=== PATIENT | male | born 1955 | race Caucasian/White ===

== ENCOUNTER 2016-08-09 23:59 | Observation (INO) | payer BC, OTHER ==
[~2016-08-09] VITALS: Ht 182.9 cm; Wt 93.0 kg
[2016-08-10] VITALS (16 sets, daily range): BP systolic 96–146; BP diastolic 57–85; PULSE 54–82; RESP 15–18; TEMP 97.5–98.9; O2SAT 96–100
[2016-08-10] MEDS ORDERED: ASPI81CH CHEW (00:30)
[2016-08-10] MEDS ORDERED: HYPERTENSION MED (00:30)
[2016-08-10] MEDS ORDERED: ATOR20TA15 PO (00:30)
[2016-08-10] MEDS ORDERED: SODIUM CHLORIDE 0.9% FLUSH 10 ML FLUSH IVF PRN (00:45)
--- NOTE | 2016-08-10 00:45 | PD ---
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 PT FELT SUBSTERNAL CHEST PRESSURE, NONRAD , 8/10, ASSOC WITH DIAPHORESIS, ONSET AT REST, LASTED ABOUT 2-3 MIN, AND WAS ABOUT 70MIN SUPERVISOR BRAIDING PFSH Past Medical History Hx Anticoagulant Therapy: Yes (ASA) Cardiovascular Problems: Yes (HTN) High Cholesterol: Yes Diminished Hearing: No Hypertension: Yes Tetanus Vaccination: Unknown Influenza Vaccination: No Past Surgical History Other Surgery: Yes (VASECTOMY) Social History Alcohol Use: Yes (OCCASSIONALLY) Tobacco Use: No Substance Use: No Allergies-Medications (Allergen,Severity, Reaction): Coded Allergies: Penicillin (Verified Allergy, Severe, Rash, 08/10/16) Reported Meds & Prescriptions Reported Meds & Active Scripts Active Reported Aspirin 81 Mg Chew 81 Mg CHEW ONCE Atorvastatin (Atorvastatin Calcium) 20 Mg Tab 20 Mg PO ONCE Review of Systems Except as stated in HPI: all other systems reviewed are Neg Cardiovascular: Positive: Chest Pain or Discomfort Physical Exam Narrative GENERAL: SKIN: Warm and dry. HEAD: Atraumatic. Normocephalic. EYES: Pupils equal and round. No scleral icterus. No injection or drainage. ENT: No nasal bleeding or discharge. Mucous membranes pink and moist. NECK: Trachea midline. No JVD. CARDIOVASCULAR: Regular rate and rhythm. RESPIRATORY: No accessory muscle use. Clear to auscultation. Breath sounds equal bilaterally. GASTROINTESTINAL: Abdomen soft, non-tender, nondistended. Hepatic and splenic margins not palpable. MUSCULOSKELETAL: Extremities without clubbing, cyanosis, or edema. No obvious deformities. NEUROLOGICAL: Awake and alert. No obvious cranial nerve deficits. Motor grossly within normal limits. Five out of 5 muscle strength in the arms and legs. Normal speech. PSYCHIATRIC: Appropriate mood and affect; insight and judgment normal. Data Data Last Documented VS Orders Electrocardiogram (08/10/16 00:33) Ckmb (Isoenzyme) Profile (08/10/16 00:33) Complete Blood Count With Diff (08/10/16 00:33) Comprehensive Metabolic Panel (08/10/16 00:33) D-Dimer (08/10/16 00:33) Prothrombin Time / Inr (Pt) (08/10/16 00:33) Act Partial Throm Time (Ptt) (08/10/16 00:33) Troponin I (08/10/16 00:33) Lipase (08/10/16 00:33) Chest, Single Ap (08/10/16 00:33) Ecg Monitoring (08/10/16 00:33) Bilateral Bp Monitoring (08/10/16 00:33) Iv Access Insert/Monitor (08/10/16 00:33) Oximetry (08/10/16 00:33) Oxygen Administration (08/10/16 00:33) Sodium Chloride 0.9% Flush (Ns Flush) (08/10/16 00:45) Place In Observation (08/10/16 ) Vital Signs (Adult) Q4H (08/10/16 02:17) Activity Bed Rest With Brp (08/10/16 ) [employer] Bl[employer] / Telemetry UNA.Q8H (08/10/16 02:17) Diet Heart Healthy (08/10/16 Breakfast) Sodium Chloride 0.9% Flush (Ns Flush) (08/10/16 09:00) Sodium Chloride 0.9% Flush (Ns Flush) (08/10/16 02:30) Aspirin Chew (Aspirin Chew) (08/10/16 09:00) Nitroglycerin 2% Oint (Nitroglycerin 2% (08/10/16 06:00) Nitroglycerin Sl (Nitrostat Sl) (08/10/16 02:30) Acetaminophen (Tylenol) (08/10/16 02:30) Morphine Inj (Morphine Inj) (08/10/16 02:30) Troponin I (08/10/16 02:17) Troponin I (08/10/16 08:17) Electrocardiogram (08/10/16 02:17) Electrocardiogram (08/10/16 08:17) Resp Oxygen Sohail C Titrat 1-4 L (08/10/16 ) Enoxaparin Inj (Lovenox Inj) (08/10/16 04:00) Admit Order (Ed Use Only) (08/10/16 02:20) Labs Laboratory Tests Test 08/10/16 00:39 White Blood Count 7.0 TH/MM3 Red Blood Count 4.74 MIL/MM3 Hemoglobin 14.9 GM/DL Hematocrit 41.6 % Mean Corpuscular Volume 87.9 FL Mean Corpuscular Hemoglobin 31.4 PG Mean Corpuscular Hemoglobin 35.7 % Concent Red Cell Distribution Width 13.8 % Platelet Count 149 TH/MM3 Mean Platelet Volume 9.1 FL Neutrophils (%) (Auto) 68.2 % Lymphocytes (%) (Auto) 20.7 % Monocytes (%) (Auto) 8.5 % Eosinophils (%) (Auto) 1.8 % Basophils (%) (Auto) 0.8 % Neutrophils # (Auto) 4.8 TH/MM3 Lymphocytes # (Auto) 1.5 TH/MM3 Monocytes # (Auto) 0.6 TH/MM3 Eosinophils # (Auto) 0.1 TH/MM3 Basophils # (Auto) 0.1 TH/MM3 CBC Comment DIFF FINAL Differential Comment Prothrombin Time 10.4 SEC Prothromb Time International 0.9 RATIO Ratio Activated Partial 27.4 SEC Thromboplast Time D-Dimer Quantitative (PE/DVT) 0.20 MG/L FEU Sodium Level 143 MEQ/L Potassium Level 4.4 MEQ/L Chloride Level 105 MEQ/L Carbon Dioxide Level 31.2 MEQ/L Anion Gap 7 MEQ/L Blood Urea Nitrogen 20 MG/DL Creatinine 0.92 MG/DL Estimat Glomerular Filtration 83 ML/MIN Rate Random Glucose 107 MG/DL Calcium Level 8.6 MG/DL Total Bilirubin 0.3 MG/DL Aspartate Amino Transf 23 U/L (AST/SGOT) Alanine Aminotransferase 38 U/L (ALT/SGPT) Alkaline Phosphatase 105 U/L Total Creatine Kinase 93 U/L Troponin I 0.04 NG/ML Total Protein 6.7 GM/DL Albumin 3.3 GM/DL Lipase 244 U/L [facility] Medical Decision Making Medical Screen Exam Complete: Yes Emergency Medical Condition: Yes Medical Record Reviewed: Yes Interpretation(s) NSR AT 81, IRBBB, BIPHASIC T WAVE ON V2/V3, NO MAJOR STEMI PATTERN NOTED Differential Diagnosis MO/NONSTEMI V WELLEN'S SYNDROME V PNA V PE V PTX Narrative Course patient's symptom free, first cardiac enzymes neg, d/w admitting doc for aadmission to eval for nonstemi vs wellen's syndrome based on ekg findings. Diagnosis Primary Impression: CHEST PAIN R/O MO VS WELLEN'S SYNDROME Admitting Information Admitting Physician Requests: Observation Scripts Metoprolol Tartrate (Lopressor)50 Mg Tab50 Mg PO DAILY #30 TAB Prov:Jennifer Miller 08/11/16 Clopidogrel (Plavix)75 Mg Tab75 Mg PO DAILY #30 TAB Prov:Jennifer Miller 08/11/16 Skip Glass MD Aug 10, 2016 00:45
[2016-08-10 00:54] LABS: AUTOMATED NEUTROPHIL # 4.8 TH/MM3 (1.8-7.7); BASOPHIL # 0.1 TH/MM3 (0-0.2); BASOPHIL % 0.8 % (0.0-2.0); EOSINOPHIL # 0.1 TH/MM3 (0-0.4); EOSINOPHIL % 1.8 % (0.0-4.0); HEMATOCRIT 41.6 % (39.0-51.0); HEMO FLAGS DIFF FINAL; LYMPH % 20.7 % (9.0-44.0); LYMPHOCYTE # 1.5 TH/MM3 (1.0-4.8); MEAN CELL VOLUME 87.9 FL (80.0-100.0); MEAN CORPUSCULAR HEMOGLOBIN 31.4 PG (27.0-34.0); MEAN CORPUSCULAR HGB CONC 35.7 % (32.0-36.0); MONO % 8.5 % (0.0-8.0); NEUT % 68.2 % (16.0-70.0); PLATELET COUNT 149 TH/MM3 (150-450); RED BLOOD COUNT 4.74 MIL/MM3 (4.50-5.90); RED CELL DISTRIBUTION WIDTH 13.8 % (11.6-17.2)
[2016-08-10 01:19] LABS: ALT (GPT) 38 U/L (12-78); ANION GAP 7 MEQ/L (5-15); AST (GOT) 23 U/L (15-37); BICARBONATE 31.2 MEQ/L (21.0-32.0); BLOOD UREA NITROGEN 20 MG/DL (7-18); CHLORIDE 105 MEQ/L (98-107); GLOMERULAR FILTRATION RATE 83 ML/MIN (>89); POTASSIUM 4.4 MEQ/L (3.5-5.1); SODIUM (NA) 143 MEQ/L (136-145)
[2016-08-10 01:20] LABS: APTT (PATIENT) 27.4 SEC (24.3-30.1); INTERNATIONAL NORMALIZED RATIO 0.9 RATIO; PROTHROMBIN TIME - PATIENT 10.4 SEC (9.8-11.6)
[2016-08-10 01:23] LABS: ALKALINE PHOSPHATASE 105 U/L (45-117); TOTAL BILIRUBIN ADULT 0.3 MG/DL (0.2-1.0)
--- NOTE | 2016-08-10 01:29 | RADRPT ---
EXAM DATE/TIME: 08/10/2016 00:53 [place] COMPARISON: No previous studies available for comparison. INDICATIONS : Chest pain. MEDICAL HISTORY : None. SURGICAL HISTORY : None. ENCOUNTER: Initial ACUITY: 1 day PAIN SCORE: 0/10 LOCATION: Bilateral chest FINDINGS: A single view of the chest demonstrates the lungs to be symmetrically aerated without evidence of mas s, infiltrate or effusion. The cardiomediastinal contours are unremarkable. Osseous structures are intact. CONCLUSION: The lungs are clear. Patricio Kelsey MD on August 10, 2016 at 1:27 Board Certified Radiologist. This report was verified electronically.
[2016-08-10 01:34] LABS: CREATINE KINASE 93 U/L (39-308)
[2016-08-10] MEDS ORDERED: ACETAMINOPHEN 500 MG CPLT PO PRN (02:30)
[2016-08-10] MEDS ORDERED: MORPHINE SULFATE 4 MG/ML INJ IV PRN (02:30)
[2016-08-10] MEDS ORDERED: NITROGLYCERIN 0.4 MG SL 25 TABS/BTL SL PRN (02:30)
[2016-08-10] MEDS ORDERED: SODIUM CHLORIDE 0.9% FLUSH 10 ML FLUSH IV FLUSH PRN (02:30)
[2016-08-10] MEDS: ENOXAPARIN SODIUM 40 MG/0.4 ML SYRINGE SQ SCH (03:57)
[2016-08-10] MEDS: NITROGLYCERIN 2% OINT 1 GM PACKET TOP SCH ×2 (06:12→18:00)
--- NOTE | 2016-08-10 08:58 | HHI.HP ---
HPI Service [facility] Primary Care Physician Dewayne Mcdaniels MD Admission Diagnosis CP R/O GA VS POSSIBLE WELLEN'S SYNDROME Diagnoses: Chief Complaint: chest pain (Jennifer Miller) Travel History International Travel<30 Days: No Contact w/Intl Traveler <30 Da: No Traveled to Known Affected Are: No (Jennifer Miller) History of Present Illness This a pleasant 61-year-old male who is generally in good health. Patient presented to the emergency room with complaint of substernal chest tightness that started at bedtime, states that he got up to walk around and he had some improvement however after that he had an episode of diaphoresis only from the chest up. He had no other symptoms, no shortness of breath, no nausea, no vomiting, no dizziness. He did not take any medications at home. He became concerned and decided to drive himself to the hospital. Indicates that the pain was relieved by the time he arrived to the emergency room. He denies any prior chest pain like this before. 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 Has history of hypertension and hyperlipidemia, no diabetes, coronary artery disease. Patient was evaluated in the emergency room, laboratory workup was completed. EKG was notable for incomplete right bundle branch block, no ST segment elevation. Troponin initially was 0.04 and the next one of 0.20. He was given aspirin as well as Lovenox. He has not followed with Dr. Workman in quite some time and is requesting evaluation by Dr. Neumann who is a close friend of his. At this time, he remains chest pain-free. Patient is admitted for further evaluation and treatment. (Jennifer Miller) Review of Systems Constitutional: COMPLAINS OF: Diaphoretic episodes, DENIES: Fatigue, Fever, Weight gain, Weight loss, Chills, Dizziness, Change in appetite, Night Sweats Endocrine: DENIES: Heat/cold intolerance, Polydipsia, Polyuria, Polyphagia Eyes: DENIES: Blurred vision, Diplopia, Eye inflammation, Eye pain, Vision loss , Photosensitivity, Double Vision Ears, nose, mouth, throat: DENIES: Tinnitus, Hearing loss, Vertigo, Nasal discharge, Oral lesions, Throat pain, Hoarseness, Ear Pain, Running Nose, Epistaxis, Sinus Pain, Toothache, Odynophagia Respiratory: DENIES: Apneas, Cough, Snoring, Wheezing, Hemoptysis, Sputum production, Shortness of breath Cardiovascular: COMPLAINS OF: Chest pain, DENIES: Palpitations, Syncope, Dyspnea on Exertion, PND, Lower Extremity Edema, Orthopnea, Claudication Gastrointestinal: DENIES: Abdominal pain, Black stools, Bloody stools, Constipation, Diarrhea, Nausea, Vomiting, Difficulty Swallowing, Anorexia Genitourinary: DENIES: Sexual dysfunction, Urinary frequency, Urinary incontinence, Urgency, Hematuria, Dysuria, Nocturia, Penile Discharge, Testicular Pain, Testicular Swelling Musculoskeletal: DENIES: Joint pain, Muscle aches, Stiffness, Joint Swelling, Back pain, Neck pain Integumentary: DENIES: Abnormal pigmentation, Nail changes, Pruritus, Rash Hematologic/lymphatic: DENIES: Bruising, Lymphadenopathy Immunologic/allergic: DENIES: Eczema, Urticaria Neurologic: DENIES: Abnormal gait, Headache, Localized weakness, Paresthesias, Seizures, Speech Problems, Tremor, Poor Balance Psychiatric: DENIES: Anxiety, Confusion, Mood changes, Depression, Hallucinations, Agitation, Suicidal Ideation, Homicidal Ideation, Delusions ( Jennifer Miller) Past Family Social History Past Medical History Hypertension Hyperlipidemia Diverticulitis Past Surgical History Vasectomy Bilateral arthroscopic knee surgery Reported Medications Reported Meds & Active Scripts Active Reported [Hypertension Med] Aspirin 81 Mg Chew 81 Mg CHEW ONCE Atorvastatin (Atorvastatin Calcium) 20 Mg Tab 20 Mg PO ONCE (Jennifer Miller) Allergies: Coded Allergies: Penicillin (Verified Allergy, Severe, Rash, 08/10/16) Active Ordered Medications Inpatient Medications Acetaminophen (Tylenol) 500 mg Q4H PRN PO HEADACHE; Start 08/10/16 at 02:30 Aspirin (Aspirin Chew) 162 mg DAILY PO ; Start 08/10/16 at 09:00 Enoxaparin Sodium (Lovenox Inj) 40 mg Q24H SQ Last administered on 08/10/16 03 :57; Start 08/10/16 at 04:00 Morphine Sulfate (Morphine Inj) 2 mg Q5M PRN IV PAIN SCALE 6 TO 10; Start 08/10 at 02:30 Nitroglycerin (Nitroglycerin 2% Oint) 1 inch Q6HR TOP Last administered on 08/10 06:12; Start 08/10/16 at 06:00 Nitroglycerin (Nitrostat Sl) 0.4 mg Q5M PRN SL ANGINA; Start 08/10/16 at 02:30 Sodium Chloride (NS Flush) 2 ml UNSCH PRN IV FLUSH FLUSH AFTER USING IV ACCESS ; Start 08/10/16 at 02:30 Family History Mother is 86 years old, she is alive and well, history hypertension Father is 84 years old, he is alive, history hypertension and dementia, CABG Has a sister who is healthy, history of hyperlipidemia Social History Patient is , he is semi-retired. He drinks alcohol occasionally. No tobacco abuse, no substance abuse. (Jennifer Miller) Physical Exam Vital Signs Vital Signs Date Time Temp Pulse Resp B/P Pulse Ox O2 Delivery O2 Flow Rate FiO2 08/10/16 08:04 97 21 08/10/16 07:52 98.9 65 15 126/66 96 08/10/16 06:45 21 08/10/16 04:45 98.0 65 18 146/82 96 08/10/16 04:25 61 08/10/16 00:35 18 100 Room Air 08/10/16 00:03 97.5 82 16 143/85 96 Physical Exam GENERAL: This is a well-nourished, well-developed patient, in no apparent distress. SKIN: No rashes, ecchymoses or lesions. Cool and dry. HEAD: Atraumatic. Normocephalic. No temporal or scalp tenderness. EYES: Pupils equal round and reactive. Extraocular motions intact. No scleral icterus. No injection or drainage. ENT: Nose without bleeding, purulent drainage or septal hematoma. Throat without erythema, tonsillar hypertrophy or exudate. Uvula midline. Airway patent. NECK: Trachea midline. No JVD or lymphadenopathy. Supple, nontender, no meningeal signs. CARDIOVASCULAR: Regular rate and rhythm without murmurs, gallops, or rubs. RESPIRATORY: Clear to auscultation. Breath sounds equal bilaterally. No wheezes , rales, or rhonchi. GASTROINTESTINAL: Abdomen soft, non-tender, nondistended. No hepato-splenomegaly , or palpable masses. No guarding. MUSCULOSKELETAL: Extremities without clubbing, cyanosis, or edema. No joint tenderness, effusion, or edema noted. No calf tenderness. Negative Homans sign bilaterally. NEUROLOGICAL: Awake and alert. Cranial nerves II through XII intact. Motor and sensory grossly within normal limits. Five out of 5 muscle strength in all muscle groups. Normal speech. Laboratory Laboratory Tests Test 08/10/16 08/10/16 00:39 03:00 White Blood Count 7.0 Red Blood Count 4.74 Hemoglobin 14.9 Hematocrit 41.6 Mean Corpuscular Volume 87.9 Mean Corpuscular Hemoglobin 31.4 Mean Corpuscular Hemoglobin 35.7 Concent Red Cell Distribution Width 13.8 Platelet Count 149 Mean Platelet Volume 9.1 Neutrophils (%) (Auto) 68.2 Lymphocytes (%) (Auto) 20.7 Monocytes (%) (Auto) 8.5 Eosinophils (%) (Auto) 1.8 Basophils (%) (Auto) 0.8 Neutrophils # (Auto) 4.8 Lymphocytes # (Auto) 1.5 Monocytes # (Auto) 0.6 Eosinophils # (Auto) 0.1 Basophils # (Auto) 0.1 CBC Comment DIFF FINAL Differential Comment Prothrombin Time 10.4 Prothromb Time International 0.9 Ratio Activated Partial 27.4 Thromboplast Time D-Dimer Quantitative (PE/DVT) 0.20 Sodium Level 143 Potassium Level 4.4 Chloride Level 105 Carbon Dioxide Level 31.2 Anion Gap 7 Blood Urea Nitrogen 20 Creatinine 0.92 Estimat Glomerular Filtration 83 Rate Random Glucose 107 Calcium Level 8.6 Total Bilirubin 0.3 Aspartate Amino Transf 23 (AST/SGOT) Alanine Aminotransferase 38 (ALT/SGPT) Alkaline Phosphatase 105 Total Creatine Kinase 93 Troponin I 0.04 0.20 Total Protein 6.7 Albumin 3.3 Lipase 244 (Jennifer Miller) Result Diagram: 08/10/163808/10/1638 Imaging Last Impressions Chest X-Ray 08/10/1632 Signed Impressions: Service Date/Time: Wednesday, August 10, 2016 00:53 - CONCLUSION: The lungs are clear. Patricio Kelsey MD (Jennifer Miller) Assessment and Plan Problem List: (1) NSTEMI (non-ST elevated myocardial infarction) (2) HTN (hypertension) (3) Hyperlipidemia (4) Thrombocytopenia Assessment and Plan Admit to Dr. Ramirez 61-year-old male patient presented to emergency room with substernal chest tightness nonradiating with diaphoresis. Troponin 2 elevated, consistent with non-STEMI. Non-STEMI -Continue with serial cardiac enzymes -Cardiology has been consulted, at patient's request we have changed consultation to Dr. Neumann. -Keep patient nothing by mouth for now, patient will likely need cardiac catheterization Continue with aspirin Lipid profile has been ordered Hypertension, stable Continue home medications Hyperlipidemia Lipid profile is pending Continue statins Thrombocytopenia, etiology unclear Follow CBC Home medications have been reviewed, initiated as indicated Continue with Lovenox for DVT prophylaxis Plan of care has been discussed with the patient, attending and registered nurse. Further management of the patient will be dependent on the hospital course This patient was seen by myself and Dr. Ramirez, this H&P is written on his behalf (Jennifer Miller) Assessment and Plan pt seen and examined as above face to face time spent with pt chart reviewed plan fo care dw learning administrator dw pt (Jeff Ramirez MD) Problem Qualifiers (1) HTN (hypertension): Qualified Code: I10 - Essential hypertension (2) Hyperlipidemia: Qualified Code: E78.5 - Hyperlipidemia, unspecified hyperlipidemia type Jennifer Miller Aug 10, 2016 08:58 Jeff Ramirez MD Aug 10, 2016 16:18
[2016-08-10] MEDS ORDERED: ASPIRIN 81 MG CHEW TAB PO SCH (09:00)
[2016-08-10] MEDS ORDERED: ONDANSETRON HCL 4 MG/2 ML VIAL IV PUSH PRN (09:00)
[2016-08-10] MEDS: SODIUM CHLORIDE 0.9% FLUSH 10 ML FLUSH IV FLUSH SCH ×2 (10:05→21:15)
[2016-08-10] MEDS: METOPROLOL TARTRATE 50 MG TAB PO SCH ×2 (10:24→21:14)
--- NOTE | 2016-08-10 10:25 | MB ---
cc: DANITA ALEGRIA MD DATE OF CONSULTATION 08/10/2016 HISTORY This is a 61-year-old gentleman who was admitted to hospital for chest discomfort. He woke from sleep last night with a substernal chest pressure associated with diaphoresis. This lasted for approximately 10-15 minutes. He came to the hospital and was spontaneously relieved on admission to the hospital. Initial electrocardiograms were unremarkable. Troponin has elevated from 0.04-0.20. PAST MEDICAL HISTORY Otherwise significant for hypertension and hyperlipidemia for which he takes Valsartan 50 mg daily and atorvastatin 10 mg daily. He is a nonsmoker. No history of diabetes has been present. Past medical history is otherwise been unremarkable. SOCIAL HISTORY The patient does not smoke or use recreational drugs. ALLERGIES PENICILLIN PHYSICAL EXAM He is awake and alert and in no acute distress. VITAL SIGNS: His blood pressure is 146/82 on admission, pulse 65 and regular. NECK: There is no neck vein distension. Carotids are normal. LUNGS: Clear. CARDIOVASCULAR: Exam reveals a regular rate and rhythm with no murmur or gallop. EXTREMITIES: Reveal no edema. ASSESSMENT The patient has unstable angina. PLAN We will plan a cardiac catheterization today for further evaluation. MD MAKSIM Jarrell/CHAIM /10:08 AM /10:18 AM
[2016-08-10] MEDS ORDERED: HEPARIN-NS/PF INJ 500 ML ONE (11:39)
[2016-08-10] MEDS ORDERED: MIDAZOLAM HCL 2 MG/2 ML VIAL ONE (11:39)
[2016-08-10] MEDS ORDERED: CLOPIDOGREL 300 MG TAB ONE (12:23)
[2016-08-10] MEDS ORDERED: HEPARIN SODIUM - IV 10,000 UNITS/10 ML VIAL ONE (12:23)
[2016-08-10] MEDS ORDERED: ACETAMINOPHEN 325 MG TAB PO PRN (12:30)
[2016-08-10] MEDS ORDERED: MISC INFORMATION XX ONE (12:30)
[2016-08-10] MEDS ORDERED: TEMAZEPAM 15 MG CAP PO PRN (12:30)
--- NOTE | 2016-08-10 12:30 | CATHPROC ---
[employer] HIS Report Study Information Study Number Admission Scheduled Start Study Start [id number] Aug 10 2016 2:22AM 08/10/2016 Aug 10 2016 11:23AM [place] [facility] Cardiac Catheterization Admit Source Facility Department Emergency department [facility] - Business Continuity Consultant Physician and Clinical Staff Initial Charles Shankar Processing Inspector Yue Dumas BSRN Other cathlab, cathlab Recorder Prakash Anderson RCIS(BS) Scrub Ankit Caal RCIS(BS) Procedures Performed Procedure Location (Site) Vessel Name Angiogram LV LV Ventricle Coronary Angiograms LCA Left Coronary Coronary Angiograms RCA Right Coronary Drug Eluting Inflatio LAD Mid Left Coronary L Heart Cath Wire insertion Fem Art (right) Femoral Art Equipment Time Mower Operator Description Size Mfg Part Number Used/Scraped [id number] 12:03 [employer] WIRE, ASAHI PROWATER 180CM 180CM Used *[id number] TRANSDUCER, TRUWAVE [id number] 11:39 GOMES SUÁREZ * Used W/STOCKCOCK *[id number] *[id number] [id number] *[id number] [id number] *[id number] *[id number] 12:16 [facility]IG/[facility] MEDICAL ANGIOSEAL, FR6 VIP FR 6 Used *[id number] 11:39 MEDLINE INDUSTRIES PACK, CCL CUSTOM * Used *[id number] 11:39 MEDLINE PACER PEN, SKIN DUAL W/ RULER * Used *[id number] STENT, 3.0 12 RESOLUTE [id number] 12:11 MEDTRONIC 3.0 12 Used INTEGRITY RX *[id number] STENT, 3.0 12 RESOLUTE [id number] 12:09 MEDTRONIC 3.0 12 Used INTEGRITY RX *[id number] 12:09 [employer] MEDICAL 30 JOSE ALEJANDRO INDEFLATOR Used *[id number]- 11:39 [employer] MEDICAL SHEATH, FR6.5 PRELUDE 11CM FR 6.5 038ACT Used *[id number]- 11:42 [employer] MEDICAL SHEATH, FR6.5 PRELUDE 11CM FR 6.5 038ACT Used *[id number] 11:39 [employer] MEDICAL WIRE, 3MMJ .035 180CM 180CM Used *[id number] 11:39 NAMIC MANIFOLD, 4 PORT * Used *[id number] 11:39 [employer] OMNIPAQUE, 350 MG, 100ML 100ML [id number] Used 11:57 [employer]COMED OMNIPAQUE, 350 MG, 150ML 150ML [id number] Used [id number] 11:39 [employer],WARM AIR CCL * Used *[id number] Equipment Model, Serial, Lot Number and Expiration Data Description Model Number Serial Number Lot Number Expiration Date ANGIOSEAL, FR6 VIP [id number] 04-12-2017 STENT, 3.0 12 RESOLUTE [id number] 11-30-2017 INTEGRITY RX STENT, 3.0 12 RESOLUTE [id number] 11-30-2017 INTEGRITY RX History: Current Medications Medication Dosage/Unit Route Frequency Last Date/Time Taken ASA LOPRESSOR History: Allergies Allergy Reaction Penicillin Rash History: Stress Tests Stress or Imaging Studies Performed No History: Other Current Smoker No Labs Hgb (g/dl) Hct (%) RBC (MIL/MM3) WBC (l/cumm) Platelets (thousands) 11.60-17.00 35.00-51.00 4.00-5.90 4.00-11.00 150.00-450.00 14.9 41.6 4.7 7 149 Glucose (mg/dl) BUN (mg/dl) Creatinine (mg/dl) BUN:Creatinine (1:x) 74.00-106.00 7.00-18.00 0.50-1.30 10.00-20.00 107 20 0.9 22.2 Na (meq/l) K (meq/l) Cl (meq/l) CO2 (mmol/L) Ca (mg/dl) 136.00-145.00 3.50-5.10 98.00-107.00 21.00-32.00 8.50-10.10 143 4.4 105 31.2 8.6 PT (sec) PTT (sec) INR (PTT:PT) 9.80-11.60 24.30-30.10 0.90-1.10 10.4 27.4 0.9 Troponin I (ng/ml) CPK-MB (ng/ML) 0.02-0.05 0.50-3.60 0.04 Not Drawn Medication Medication Total Dose (Bolus/Oral) Medication Total Dosage/Unit 1% XYLOCAINE 20 mL HEPARIN 6000 units PLAVIX 600 mg VERSED 2 mg Medications (Bolus/Oral) Medication Time Given Dosage/Unit Administered By Reason VERSED 08/10/2016 11:46:15 AM 2 mg Rittenour, Yue 2 mg VERSED given in lab by Yue Dumas BSRN in Left Antecubital via Peripheral IV. Ordered by Charles Neumann. 1% XYLOCAINE 08/10/2016 11:52:01 AM 20 mL Charles Neumann 20 mL 1% XYLOCAINE given in lab by hCarles Neumann in Right Groin via Subcutaneous. Ordered by Charles Evans ms. HEPARIN 08/10/2016 12:01:42 PM 6000 units Rittencarole, Yue 6000 units HEPARIN given in lab by Yue Dumas BSRN in Left Antecubital via Peripheral IV. Orde red by Charles Neumann. PLAVIX 08/10/2016 12:25:00 PM 600 mg Rittenour, Yue 600 mg PLAVIX given in lab by Yue Dumas BSRN via Oral. Ordered by Charles Neumann. Initial Case Assessment Cardiovascular HR Rhythm NIBP Chest Pain 58 sr 131/33 0 Edema Present Skin color Skin None Normal Warm Dry Circulatory - Right Pulses Dorsalis Pedis Femoral 2 2 Scale (0,1,2,3,4,d) Circulatory - Left Pulses Dorsalis Pedis Femoral 2 2 Scale (0,1,2,3,4,d) Circulatory - Lower Extremities Color Lower Right Color Lower Left Normal Normal Neurological State Oriented to time-place- Alert Moves all extremities person Respiration - General Respiration Rate SpO2 (%) (B/min) 18 96 Chronological Log Time Study Chronological Log 11:36:13 Patient arrived via Bed. 11:36:40 Patient Name, D.O.B, / Armband Verified By R.N. 11:36:50 Pre-op and post- op instructions given; patient acknowledges understanding of instructions . 11:38:49 Patient has been NPO for More than 6Hrs. 11:38:50 Skin Breakdown- none per patient 11:39:02 Patient Warmer Placed on the Table. 11:39:06 A # 20 IV was noted in the Antecubital (left). Grade = 0 Vitals capture started with the following parameters, Patient=Adult, Interval=5 min, Initial Pr kxgggh=453 mmHg, 11:41:53 Deflation Rate=5 mmHg 11:42:23 HR=59 bpm, QWMN=966/83 mmhg, SpO2=97.0 %, Resp=9 B/min, Pain=0, Alisha=10, Mehta=2 11:43:39 Reference ECG taken 11:45:06 MD arrived. Assessment: Initial Case, HR=58 BPM, Rhythm=sr, QBRB=470/33 mmhg, Chest Pain=0, Edema=None, Col or=Normal, Skin = Warm, Dry Right Pulses: [place] Ped=2, Femoral=2 Left Pulses: [place] Ped=2, Femoral=2 11:45:14 Lower Right Extremities: Color=Normal Lower Left Extremities: Color=Normal Neurological: State=Alert, Ox3, MELENDEZ Respiration: Resp=18 B/min, SpO2=96 % 11:46:15 2 mg VERSED given in lab by Yue Dumas BSRN in Left Antecubital via Peripheral IV. O rdered by Charles Neumann. 11:47:28 HR=69 bpm, IWDJ=896/72 mmhg, SpO2=96.0 %, Resp=19 B/min, Pain=0, Alisha=10, Mehta=2 11:47:47 Bilateral groins prepped with 2% chlorhexidine, and with a 3 min. waiting time. Time Out. Correct patient, correct procedure,correct physician, power injector not loaded with contrast with surgical 11:51:26 team present. Time Out Concurred by , individual staff in procedure 11:52:00 Case Start 11:52:01 20 mL 1% XYLOCAINE given in lab by Charles Neumann in Right Groin via Subcutaneous. Ordered by Charles Neumann. 11:52:09 Access site was Right Femoral Artery. 11:52:27 HR=58 bpm, GAKN=648/70 mmhg, SpO2=94.0 %, Resp=22 B/min, Pain=0, Alisha=10, Mehta=2 11:52:45 Pressure channel 1 zeroed. 11:53:47 A SHEATH, FR6.5 PRELUDE 11CM FR 6.5 was advanced into the Fem Art (right) using the Percuta neous technique. A JL 4.0 INFINITI CATHETER FR 6 was advanced over a wire. OMNIPAQUE, 350 MG, 150ML 150ML was us ed for 11:54:18 injections. 11:56:53 Pressure channel 1 zeroed. Recorded Pressure: Ao, HR=63, Condition=Condition 1 11:57:08 (Aorta) Ao 100/65/79 11:57:19 The LCA was injected and visualized at various angles. OMNIPAQUE, 350 MG, 150ML 150ML used . 11:57:24 HR=58 bpm, SSRB=668/70 mmhg, SpO2=94.0 %, Resp=15 B/min, Pain=0, Alisha=10, Mehta=2 11:58:50 Catheter was removed A JR 4.0 INFINITI CATHETER FR 6 was advanced over a wire. OMNIPAQUE, 350 MG, 150ML 150ML was us ed for 11:59:25 injections. 11:59:34 The RCA was injected and visualized at various angles. OMNIPAQUE, 350 MG, 150ML 150ML used . 12:00:29 Catheter was removed 6000 units HEPARIN given in lab by Yue Dumas BSRN in Left Antecubital via Peripheral IV . Ordered by Thien, 12:01:42 Charles. A XB 3.5 GUIDE CATHETER FR 6 was advanced over a wire. OMNIPAQUE, 350 MG, 150ML 150ML was used for 12:02:00 injections. 12:02:23 HR=65 bpm, GNXS=501/71 mmhg, SpO2=95.0 %, Resp=14 B/min, Pain=0, Alisha=10, Mehta=2 12:02:52 A WIRE, ASAHI PROWATER 180CM 180CM was inserted via Fem Art (right). 12:06:13 Interventional wire has crossed the lesion 12:06:53 Activated Clotting Time Drawn 12:07:24 HR=66 bpm, JVHI=845/70 mmhg, SpO2=94.0 %, Resp=14 B/min, Pain=0, Alisha=10, Mehta=2 A STENT, 3.0 12 RESOLUTE INTEGRITY RX 3.0 12 was advanced through a XB 3.5 GUIDE CATHETER FR 6 over a 12:08:01 WIRE, ASAHI PROWATER 180CM 180CM. A STENT, 3.0 12 RESOLUTE INTEGRITY RX 3.0 12 was deployed using a 30 JOSE ALEJANDRO INDEFLATOR at 12 atmos pheres for 12:08:02 20 seconds in the LAD Mid. 12:09:26 Delivery device removed 12:10:00 Activated Clotting Time Drawn A STENT, 3.0 12 RESOLUTE INTEGRITY RX 3.0 12 was advanced through a XB 3.5 GUIDE CATHETER FR 6 over a 12:10:29 WIRE, [employer] PROWATER 180CM 180CM. A STENT, 3.0 12 RESOLUTE INTEGRITY RX 3.0 12 was deployed using a 30 JOSE ALEJANDRO INDEFLATOR at 12 atmos pheres for 12:10:56 20 seconds in the LAD Mid. 12:11:00 Delivery device removed 12:11:05 Wire removed 12:11:30 Catheter was removed A PIGTAIL STR INFINITI CATHETER FR 6 was advanced over a wire. OMNIPAQUE, 350 MG, 150ML 150ML w as used for 12:12:01 injections. 12:12:11 The LV was injected at 12 cc/sec for a total of 30. OMNIPAQUE, 350 MG, 150ML 150ML used. Recorded Pressure: LV, HR=61, Condition=Condition 1 12:12:15 (Left Ventricle) LV 96/10/13 12:12:23 HR=61 bpm, BBOR=987/70 mmhg, SpO2=95.0 %, Resp=15 B/min, Pain=0, Alisha=10, Mehta=2 Recorded Pressure: LV, Ao, HR=62, Condition=Condition 1 12:12:30 (Left Ventricle) LV 108/13/15, (Aorta) Ao 119/71/91 12:13:10 ACT (Normal Range 90-180) = 312 12:17:22 HR=67 bpm, ELEX=363/84 mmhg, SpO2=97.0 %, Resp=13 B/min, Pain=0, Alisha=10, Mehta=2 12:18:29 Catheter was removed 12:18:36 An injection in the Fem Art (right) was made through the SHEATH, FR6.5 PRELUDE 11CM FR 6.5. 12:18:58 ANGIOSEAL, FR6 VIP FR 6 placement in the Fem Art (right) 12:19:06 Case End 12:19:08 Sterile dressing applied to site 12:19:13 No case complications noted. 12:19:14 Cine recording checked. 12:19:20 Bedside Report will be given. 12:19:23 Implantable Device card placed in patient's chart. 12:: Contrast Scanned 12::33 A Left Heart Cath was performed. 12::33 Patient moved to stretcher 12:23:04 JUED=210/72 mmhg, SpO2=97.0 %, Pain=0, Alisha=10, Mehta=2 12:25:00 600 mg PLAVIX given in lab by Yue Dumas BSRN via Oral. Ordered by Charles Neumann. End Study - Contrast Media Used In Study Contrast Total Opened (mL) Total Used (mL) Total Wasted (mL) Omnipaque 115 115 0 End Study - Maximum Contrast Load Max Contrast Load (mL) 472.2 End Study - Radiation Exposure Fluoro Time (minutes) 3.9 End Study - Patient Disposition Complications Transferred To Interventional Outcome No Telemetry Bed successful
--- NOTE | 2016-08-10 13:01 | MA ---
cc: DANITA ALEGRIA MD DATE: 08/10/2016 The patient was prepped and draped in usual fashion. A six sheath was inserted percutaneously in the right femoral artery. Coronary angiography was done with Michael preformed catheters. Left ventriculography was done with a pigtail catheter. RESULTS Aortic pressure was 119/71. Left ventricular end-diastolic pressure was 13. There is no gradient across the aortic valve. CORONARY ANGIOGRAPHY Left main coronary was normal. The left anterior descending artery demonstrated high-grade stenosis in its midportion compromising the lumen by approximately 90%. There was some mild luminal irregularities distally but no high-grade stenoses were seen. Left circumflex demonstrated a 10-20% stenosis in its proximal portion. No other significant lesions were noted. The right coronary was anatomically dominant. A 20-30% stenosis was present in its proximal portion. Following consents an XB LAD 3.5 guide was used to cannulate the left main and Prowater wire was advanced into the distal LAD. Primary stenting was accomplished with a 3-0 x 15-mm drug-eluting stent to 12 atmospheres which resulted in good cosmetic result, although the stent was not quite long enough to traverse the lesion. A second 3-0 x 12 mm stent was used to overlap the stent in the proximal portion and post dilated to 14 atmospheres. This resulted in excellent cosmetic result. SUSANNAH-III flow was present pre and post procedure and essentially zero residual was present. Left ventriculography was then done revealing some mild anterior wall hypokinesis with an overall ejection fraction of 60%. At the end of the procedure AngioSeal technique was used to seal the groin. CONCLUSION Successful PTCA and stenting of the mid-LAD, mild hypokinesis of the left anterior wall of the left ventricle with preserved left ventricular ejection fraction. MD MAKSIM Jarrell/TLL /12:29 PM /12:57 PM
[2016-08-10] MEDS ORDERED: ATORVASTATIN 20 MG TAB PO SCH (15:15)
[2016-08-10] MEDS ORDERED: IOHEXOL 350 MG/ML 50 ML BTL (for Cath Lab) OTHER ONE (16:58)
[2016-08-10] MEDS ORDERED: IOHEXOL 350 MG/ML 100 ML BTL (for Cath Lab) OTHER ONE (16:58)
--- NOTE | 2016-08-10 22:58 | EKG ---
Date Performed: 08/10/2016 Time Performed: 08:20:15 PTAGE: 61 years EKG: Sinus rhythm INCOMPLETE RIGHT BUNDLE BRANCH BLOCK NONSPECIFIC T-WAVE ABNORMALITY BORDERLINE ECG PREVIOUS TRACING : 08/10/2016 04.57 Compared to prior tracing no significant change DOCTOR: Sreekanth Leiva Interpretating Date/Time 08/10/2016 22:56:47
--- NOTE | 2016-08-10 23:06 | EKG ---
Date Performed: 08/10/2016 Time Performed: 04:57:38 PTAGE: 61 years EKG: Sinus rhythm INCOMPLETE RIGHT BUNDLE BRANCH BLOCK NONSPECIFIC T-WAVE ABNORMALITY BORDERLINE ECG PREVIOUS TRACING : 08/10/2016 02.54 Compared to prior tracing no significant change DOCTOR: Sreekanth Leiva Interpretating Date/Time 08/10/2016 23:04:39
--- NOTE | 2016-08-10 23:09 | EKG ---
Date Performed: 08/10/2016 Time Performed: 02:54:16 PTAGE: 61 years EKG: Sinus rhythm POSSIBLE RIGHT VENTRICULAR CONDUCTION DELAY POSSIBLE INFERIOR MYOCARDIAL INFARCTION ABNORMAL ECG PREVIOUS TRACING : 08/10/2016 00.15 Compared to prior tracing no significant change DOCTOR: Sreekanth Leiva Interpretating Date/Time 08/10/2016 23:08:30
--- NOTE | 2016-08-10 23:15 | EKG ---
Date Performed: 08/10/2016 Time Performed: 00:15:52 PTAGE: 61 years EKG: Sinus rhythm INCOMPLETE RIGHT BUNDLE BRANCH BLOCK POSSIBLE INFERIOR MYOCARDIAL INFARCTION BORDERLINE ECG NO PREVIOUS TRACING DOCTOR: Sreekanth Leiva Interpretating Date/Time 08/10/2016 23:13:39
[2016-08-11] VITALS (10 sets, daily range): BP systolic 120–139; BP diastolic 80; PULSE 54–66; RESP 16; TEMP 97.8–98.1; O2SAT 97–99
[2016-08-11] MEDS: ENOXAPARIN SODIUM 40 MG/0.4 ML SYRINGE SQ SCH (04:15)
[2016-08-11] MEDS: NITROGLYCERIN 2% OINT 1 GM PACKET TOP SCH ×2 (04:15)
[2016-08-11 04:50] LABS: AUTOMATED NEUTROPHIL # 5.2 TH/MM3 (1.8-7.7); BASOPHIL % 0.4 % (0.0-2.0); EOSINOPHIL # 0.1 TH/MM3 (0-0.4); EOSINOPHIL % 1.5 % (0.0-4.0); HEMATOCRIT 40.8 % (39.0-51.0); HEMO FLAGS DIFF FINAL; LYMPH % 19.4 % (9.0-44.0); LYMPHOCYTE # 1.4 TH/MM3 (1.0-4.8); MEAN CELL VOLUME 89.3 FL (80.0-100.0); MEAN CORPUSCULAR HEMOGLOBIN 30.5 PG (27.0-34.0); MEAN CORPUSCULAR HGB CONC 34.2 % (32.0-36.0); MONO % 7.1 % (0.0-8.0); NEUT % 71.6 % (16.0-70.0); PLATELET COUNT 123 TH/MM3 (150-450); RED BLOOD COUNT 4.57 MIL/MM3 (4.50-5.90); RED CELL DISTRIBUTION WIDTH 14.2 % (11.6-17.2); WHITE BLOOD COUNT 7.3 TH/MM3 (4.0-11.0)
[2016-08-11 04:59] LABS: BICARBONATE 29.1 MEQ/L (21.0-32.0); POTASSIUM 4.1 MEQ/L (3.5-5.1)
[2016-08-11 05:01] LABS: HDL CHOLESTEROL 39.5 MG/DL (40.0-60.0)
--- NOTE | 2016-08-11 07:23 | PD.CARD.PN ---
Subjective Subjective Remarks Feels well. No chest pain. Mild productive cough this morning. CK 106. BP down to 99 systolic Objective Vital Signs / I&O Vital Signs Date Time Temp Pulse Resp B/P Pulse Ox O2 Delivery O2 Flow Rate FiO2 08/11/16 06:44 61 08/11/16 05:04 65 08/11/16 04:34 21 08/11/16 04:23 61 08/11/16 03:47 57 08/11/16 03:10 98.1 59 16 120/80 97 08/11/16 02:20 55 08/11/16 01:00 55 08/11/16 00:00 54 08/10/16 23:25 97.9 55 16 96/57 96 08/10/16 23:00 54 08/10/16 22:00 56 08/10/16 21:00 62 08/10/16 20:15 97.7 65 16 118/76 96 08/10/16 20:15 68 08/10/16 19:24 68 08/10/16 18:00 64 08/10/16 17:00 62 08/10/16 17:00 97.8 65 18 118/72 97 08/10/16 16:00 58 08/10/16 10:10 68 08/10/16 08:04 97 21 08/10/16 07:52 98.9 65 15 126/66 96 I/O 08/10/16 08/10/16 08/10/16 08/11/16 08/11/16 08/11/16 07:00 15:00 23:00 07:00 15:00 23:00 Intake Total 1050 ml 480 ml Output Total 1400 ml 600 ml Balance -350 ml -120 ml Intake Oral 1050 ml 480 ml Output Urine Total 1400 ml 600 ml Physical Exam Lungs clear RRR Groin OK Laboratory Laboratory Tests Test 08/10/16 08/11/16 08:54 04:12 Troponin I 0.56 NG/ML White Blood Count 7.3 TH/MM3 Red Blood Count 4.57 MIL/MM3 Hemoglobin 13.9 GM/DL Hematocrit 40.8 % Mean Corpuscular Volume 89.3 FL Mean Corpuscular Hemoglobin 30.5 PG Mean Corpuscular Hemoglobin 34.2 % Concent Red Cell Distribution Width 14.2 % Platelet Count 123 TH/MM3 Mean Platelet Volume 8.9 FL Neutrophils (%) (Auto) 71.6 % Lymphocytes (%) (Auto) 19.4 % Monocytes (%) (Auto) 7.1 % Eosinophils (%) (Auto) 1.5 % Basophils (%) (Auto) 0.4 % Neutrophils # (Auto) 5.2 TH/MM3 Lymphocytes # (Auto) 1.4 TH/MM3 Monocytes # (Auto) 0.5 TH/MM3 Eosinophils # (Auto) 0.1 TH/MM3 Basophils # (Auto) 0.0 TH/MM3 CBC Comment DIFF FINAL Differential Comment Sodium Level 143 MEQ/L Potassium Level 4.1 MEQ/L Chloride Level 109 MEQ/L Carbon Dioxide Level 29.1 MEQ/L Anion Gap 5 MEQ/L Blood Urea Nitrogen 11 MG/DL Creatinine 0.81 MG/DL Estimat Glomerular Filtration 96 ML/MIN Rate Random Glucose 88 MG/DL Calcium Level 8.2 MG/DL Total Creatine Kinase 106 U/L Triglycerides Level 143 MG/DL Cholesterol Level 134 MG/DL LDL Cholesterol 66 MG/DL HDL Cholesterol 39.5 MG/DL Cholesterol/HDL Ratio 3.39 RATIO Assessment and Plan Assessment and Plan Stable. CPK is normal. OK to discharge. RX written for metoprolol 25 mg bid and Plavix 75 mg daily. Continue ASA 81 mg daily and atorvastatin 20 mg daily. F/U 1 week. Activity and diet discussed Charles Neumann MD Aug 11, 2016 07:23
[2016-08-11] MEDS: METOPROLOL TARTRATE 50 MG TAB PO SCH (08:46)
[2016-08-11] MEDS: SODIUM CHLORIDE 0.9% FLUSH 10 ML FLUSH IV FLUSH SCH (08:46)
[2016-08-11] MEDS ORDERED: ASPIRIN 81 MG CHEW TAB PO SCH (09:00)
[2016-08-11] MEDS ORDERED: CLOPIDOGREL 75 MG TAB PO SCH (09:00)
--- NOTE | 2016-08-11 10:11 | HHI.DCPOC ---
Discharge Care Plan Diagnosis: (1) NSTEMI (non-ST elevated myocardial infarction) (2) HTN (hypertension) (3) Hyperlipidemia (4) Thrombocytopenia Your Health Problems Are: Chest Pain Goals to Promote Your Health * To prevent worsening of your condition and complications * To maintain your health at the optimal level Directions to Meet Your Goals Take your medications as prescribed Follow your dietary instruction Follow activity as directed Keep your appointments as scheduled Take your immunizations and boosters as scheduled If your symptoms worsen call your PCP, if no PCP go to Urgent Care Center or Emergency Room Smoking is Dangerous to Your Health. Avoid second hand smoke Call the 24-hour hour crisis hotline for domestic abuse at Jennifer Miller [facility] Aug 11, 2016 10:11
[2016-08-11] MEDS ORDERED: METO-309 PO (10:15)
[2016-08-11] MEDS ORDERED: PLAV75TA29 PO (10:15)
--- NOTE | 2016-08-11 11:15 | HHI.PR ---
Subjective Subjective Remarks had cath yesterday with stent no cp no sob tele reviewed, NSVT short episodes noted Dr. Neumann has evaluated, cleared for dc Review of Systems Constitutional Constitutional Remarks 12 point ros completed, negative except as noted above Vitals/Results Intake & Output 08/10/16 08/10/16 08/11/16 15:00 23:00 07:00 Intake Total 1050 ml 480 ml Output Total 1400 ml 600 ml Balance -350 ml -120 ml Intake Oral 1050 ml 480 ml Output Urine Total 1400 ml 600 ml Vital Signs Vital Signs Date Time Temp Pulse Resp B/P Pulse Ox O2 Delivery O2 Flow Rate FiO2 08/11/16 09:35 99 08/11/16 08:00 97.8 66 16 139/80 97 08/11/16 08:00 66 08/11/16 06:44 61 08/11/16 05:04 65 08/11/16 04:34 21 08/11/16 04:23 61 08/11/16 03:47 57 08/11/16 03:10 98.1 59 16 120/80 97 08/11/16 02:20 55 08/11/16 01:00 55 08/11/16 00:00 54 08/10/16 23:25 97.9 55 16 96/57 96 08/10/16 23:00 54 08/10/16 22:00 56 08/10/16 21:00 62 08/10/16 20:15 97.7 65 16 118/76 96 08/10/16 20:15 68 08/10/16 19:24 68 08/10/16 18:00 64 08/10/16 17:00 62 08/10/16 17:00 97.8 65 18 118/72 97 08/10/16 16:00 58 CBC/BMP: 08/11/16 0412 08/11/16 0412 Lab Results Laboratory Tests Test 08/11/16 04:12 White Blood Count 7.3 TH/MM3 Red Blood Count 4.57 MIL/MM3 Hemoglobin 13.9 GM/DL Hematocrit 40.8 % Mean Corpuscular Volume 89.3 FL Mean Corpuscular Hemoglobin 30.5 PG Mean Corpuscular Hemoglobin 34.2 % Concent Red Cell Distribution Width 14.2 % Platelet Count 123 TH/MM3 Mean Platelet Volume 8.9 FL Neutrophils (%) (Auto) 71.6 % Lymphocytes (%) (Auto) 19.4 % Monocytes (%) (Auto) 7.1 % Eosinophils (%) (Auto) 1.5 % Basophils (%) (Auto) 0.4 % Neutrophils # (Auto) 5.2 TH/MM3 Lymphocytes # (Auto) 1.4 TH/MM3 Monocytes # (Auto) 0.5 TH/MM3 Eosinophils # (Auto) 0.1 TH/MM3 Basophils # (Auto) 0.0 TH/MM3 CBC Comment DIFF FINAL Differential Comment Sodium Level 143 MEQ/L Potassium Level 4.1 MEQ/L Chloride Level 109 MEQ/L Carbon Dioxide Level 29.1 MEQ/L Anion Gap 5 MEQ/L Blood Urea Nitrogen 11 MG/DL Creatinine 0.81 MG/DL Estimat Glomerular Filtration 96 ML/MIN Rate Random Glucose 88 MG/DL Calcium Level 8.2 MG/DL Total Creatine Kinase 106 U/L Triglycerides Level 143 MG/DL Cholesterol Level 134 MG/DL LDL Cholesterol 66 MG/DL HDL Cholesterol 39.5 MG/DL Cholesterol/HDL Ratio 3.39 RATIO Physical Exam General General Appearance: Well Developed, Well Nourished, No Acute Distress, Comfortable Eyes Eye Exam: Pupils Equal, Pupils Reactive Ears & Nose Ears & Nose Exam: Nasal Mucosa [place] Throat Throat Exam: Oral Mucosa [place] & Moist Neck Neck Exam: Neck Supple, Trachea Midline Pulmonary Resp Exam: Clear Bilaterally, No Distress Cardiology CV Exam: Regular, Good Perfusion Gastrointestinal/Abdomen GI Exam: Soft, Non-Tender, Bowel Sounds Present, Non-Distended Musculoskeletal MS Exam: Joints Intact Integumentary Skin Exam: Warm, Dry Extremeties Extremities Exam: No Edema, Pedal Pulses Palpable Extremeties Remarks right groin with mild bruising, no hematoma Neurologic Neuro Exam: Alert, Awake, Oriented, Speech Clear, Moving All Extremities, No Focal Deficits Psychiatric Psych Exam: Appropriate Responses VTE Prophylaxis VTE Prophylaxis Meds: Lovenox Assessment/Plan Problem List: (1) NSTEMI (non-ST elevated myocardial infarction) (2) HTN (hypertension) (3) Hyperlipidemia (4) Thrombocytopenia Assessment/Plan 61-year-old male patient presented to emergency room with substernal chest tightness nonradiating with diaphoresis. Troponin 2 elevated, consistent with non-STEMI. Non-STEMI -Trop elevated -appreciate Dr. Keys's input -S/P cath 08/10-Successful PTCA and stenting of the mid-LAD, mild hypokinesis of the left anterior wall of the left ventricle with preserved left ventricular ejection fraction. -continue ASA, Plavix -Lopressor 25 mg po bid, dec. to daily due to low bp 90s -cleared for dc by Dr. Neumann Hypertension, stable Continue home medications Hyperlipidemia Lipid profile results noted, ok Continue statins Thrombocytopenia, etiology unclear plat. 123 Lovenox for DVT prophylaxis CP free, tolerated procedure well Cleared by Dr. Neumann Discharge home today F/U Dr. Neumann Diet-heart healthy Activity-as tolerated D/W RN D/W Dr. Neumann D/W Dr. Ramirez D/W pt. This patient was seen by myself and Dr. Ramirez, this note is written on his behalf Discharge Minutes: 38 Problem Qualifiers (1) HTN (hypertension): Qualified Code: I10 - Essential hypertension (2) Hyperlipidemia: Qualified Code: E78.5 - Hyperlipidemia, unspecified hyperlipidemia type Jennifer Miller Aug 11, 2016 11:15
== END 2016-08-11 10:58 | disposition home or self-care (01) ==
LOC: NEPC 23:59 → NEDA 08-10 02:22 → NEPHCDU 08-10 03:13 → HCIS 08-10 14:25
PROVIDERS: ADMIT Specialist; ATTEND Specialist
DX: I21.4 Non-ST elevation (NSTEMI) myocardial infarction (principal); I25.110 Atherosclerotic heart disease of native coronary artery with unstable angina pectoris; I47.2 Ventricular tachycardia; I45.10 Unspecified right bundle-branch block; R05 Cough; R94.31 Abnormal electrocardiogram [ECG] [EKG]; R61 Generalized hyperhidrosis; I10 Essential (primary) hypertension; E78.5 Hyperlipidemia, unspecified; D69.6 Thrombocytopenia, unspecified; E78.00 Pure hypercholesterolemia, unspecified; Z79.899 Other long term (current) drug therapy; Z79.82 Long term (current) use of aspirin; I20.0 Unstable angina
CPT/HCPCS: 71010; 80048; 80053; 80061; 82550; 83690; 84484; 85002; 85025; 85379; 85610; 85730; 92928; 93005; 93458; 99285; C1760; C1769; C1874; C1887; C1893; G0269; G0378; J1644; J1650; J2250; Q9967